=== PATIENT | female | born 1985 | race Caucasian/White ===

== ENCOUNTER → 2016-09-16 | Outpatient (CLI) | payer OTHER ==
[~2016-09-16] MED LIST: AGM875T; ALPR0.25 PO; CEFD300C3 PO; CLIN150V3 IJ; CLIN300C3 PO; CYCL10TA9 PO; DEPO PROVERA; DEPO SHOT IM; DOXY100T2 PO; FLUC200T; FLUT9.9S NS; HCTZ12.5T PO; HYDR-2997 PO; HYDR-3583 PO; HYDR1TAB PO; LEVO500T2 PO; METH4TAB PO; METO50TA7 PO; MPR22T TOP; MPR22T TP; MTP25TSR PO; MTR250T PO; MULT1CAP27 PO; NAPR-243 PO; NF-ESOM40C PO; NITR-65 PO; OMG1KC PO; PHEN37.582 PO; PNT40TEC PO; POTA99TA15 PO; PRD20T; PROP10TA8 PO; SCR1T1 PO; SULF1TAB35 PO; TRAM50TA2 PO
--- NOTE | 2016-09-18 10:36 | ECHOCARDIOGRAPHY REPORT ---
PROCEDURE PHYSICIAN: MESSI NIETO DATE OF PROCEDURE: 09/16/2016 TWO DIMENSIONAL ECHOCARDIOGRAM REPORT PRIMARY PHYSICIAN: OTHER PHYSICIAN: REFERRING PHYSICIAN: Dr. Martha Galicia ORDERING PHYSICIAN: INDICATION FOR THE PROCEDURE: Chest pain MEASUREMENTS DERIVED VALUES LV DIAMETER (LAX) NORMALS NORMALS Diastolic 4.6 (3.6-5.2) Eject. Fract. 60% (60%+/-6%) Systolic (2.3-3.9) Diastolic Vol. % Shortening (0.22-0.42) Systolic Vol. Aortic Root IVS THICKNESS Diastolic 0.9 (0.6-1.1) LVPW THICKNESS Diastolic 0.9 (0.6-1.1) LA DIAMETER Systolic 2.5 (2.1-3.7) FINDINGS: 1. Technical quality is good. 2. The left ventricle is normal in size with normal contractility. Systolic function appeared to be normal. Estimated ejection fraction is 60%. 3. The left atrium is normal in size. No clot or thrombus were seen within the left atrium. 4. The right atrium and right ventricle are normal in size. No clot or thrombus were seen within the right side. 5. Mitral valve is normal in morphology with mild mitral regurgitation noted by color Doppler flow. No mitral valve prolapse. No mitral valve stenosis. 6. Aortic valve is trileaflet with normal opening and closing pattern. No significant aortic stenosis or regurgitation was seen. 7. Tricuspid valve is normal in morphology with trace tricuspid regurgitation noted by color Doppler flow. Doppler across tricuspid valve estimated pulmonary artery pressure of 32+ right atrial pressure. 8. Pulmonic valve is functioning normally. 9. No pericardial effusion. CONCLUSION: 1. Normal left ventricular size and systolic function. Estimated ejection fraction 60%. 2. Mild mitral regurgitation and trace tricuspid regurgitation. 3. Estimated pulmonary artery pressure of 40 mmHg which is slight deterioration compared to the study of November 2015. It could be an over estimation of the pulmonary artery pressure. Job ID: [id number] Dictated Date: 09/17/2016 15:55:53 Ballet Master/Mistress Date: 09/18/2016 10:32:47 / kjreta
== END ==
LOC: CARD 14:42
PROVIDERS: ATTEND Physician Assistant
DX: I34.0 Nonrheumatic mitral (valve) insufficiency (principal); E78.2 Mixed hyperlipidemia; I27.0 Primary pulmonary hypertension; R07.89 Other chest pain
CPT/HCPCS: 93306

== ENCOUNTER → 2016-11-16 | Outpatient (CLI) | payer OTHER ==
--- NOTE | 2016-11-16 17:16 | Diagnostic Imaging Report ---
Transabdominal and transvaginal pelvic ultrasound. INDICATION: Ovarian cyst. FINDINGS: The uterus is 6 x 3.6 x 3.7 cm. There is slight heterogeneity in the myometrium with no discrete mass. The endometrial stripe is 0.3 cm in thickness. The right ovary is 2.3 x 1.9 x 1.8 cm. The left ovary is 3.0 x 2.9 x 1.8 cm. In the left ovary, there is a 2.4 cm cyst with minimal septation and adjacent free fluid which may relate to recent partial rupture. Arterial and venous waveforms are demonstrated in the right ovary. Arterial waveforms in the left ovary seen. IMPRESSION: 2.4 cm minimally complicated left ovarian cyst with an adjacent small amount of free fluid in the pelvis suggestive of partial rupture. No solid mass. Dictated by: Dictated on workstation # [id number]
== END ==
LOC: RAD 13:46
PROVIDERS: ATTEND Obstetrics & Gynecology
DX: N93.9 Abnormal uterine and vaginal bleeding, unspecified (principal); N83.202 Unspecified ovarian cyst, left side; N92.1 Excessive and frequent menstruation with irregular cycle
CPT/HCPCS: 76830; 76856

== ENCOUNTER → 2017-02-07 | Outpatient (CLI) | payer OTHER ==
[2017-02-07 18:24] LABS: BASOPHILS % (AUTO) 1 % (0-10); EOSINOPHILS # (AUTO) 0.1 10^3/uL (0.0-0.3); EOSINOPHILS % (AUTO) 1 % (0-10); LYMPHOCYTES # (AUTO) 3.2 X 10^3 (1.0-4.0); LYMPHOCYTES % (AUTO) 36 % (12-44); MEAN CORPUSCULAR HEMOGLOBIN 32 PG (25-34); MEAN CORPUSCULAR HGB CONC 33 G/DL (32-36); MEAN CORPUSCULAR VOLUME 97 FL (80-99); MEAN PLATELET VOLUME 9.5 FL (7.4-10.4); MONOCYTES # (AUTO) 0.8 X 10^3 (0.0-1.0); MONOCYTES % (AUTO) 9 % (0-12); NEUTROPHILS # (AUTO) 4.7 X 10^3 (1.8-7.8); NEUTROPHILS % (AUTO) 54 % (42-75); PLATELET COUNT 280 10^3/uL (130-400); RED BLOOD COUNT 4.34 10^6/uL (4.35-5.85); RED CELL DISTRIBUTION WIDTH 12.2 % (10.0-14.5); WHITE BLOOD COUNT 8.8 10^3/uL (4.3-11.0)
[2017-02-07 18:44] LABS: ALANINE AMINOTRANSFERASE 17 U/L (0-55); ALBUMIN 4.3 GM/DL (3.2-4.5); AMYLASE 48 U/L (25-125); ANION GAP 12 MMOL/L (5-14); ASPARTATE AMINO TRANSFERASE 20 U/L (5-34); BILIRUBIN,TOTAL 0.9 MG/DL (0.1-1.0); BLOOD UREA NITROGEN 9 MG/DL (7-18); BUN/CREATININE RATIO 11; CALCIUM 9.2 MG/DL (8.5-10.1); CARBON DIOXIDE 22 MMOL/L (21-32); CHLORIDE 108 MMOL/L (98-107); CREATININE SERUM 0.82 MG/DL (0.60-1.30); GFR ESTIMATED > 60; GLUCOSE 85 MG/DL (70-105); LIPASE 18 U/L (8-78); POTASSIUM 3.7 MMOL/L (3.6-5.0); SODIUM 142 MMOL/L (135-145); TOTAL PROTEIN 7.4 GM/DL (6.4-8.2); hs C REACTIVE PROTEIN 0.08 MG/DL (0.00-0.50)
== END ==
LOC: LAB 18:07
DX: R10.12 Left upper quadrant pain (principal); Z87.19 Personal history of other diseases of the digestive system
CPT/HCPCS: 36415; 80053; 82150; 83690; 85025; 86141

== ENCOUNTER → 2017-05-09 | Outpatient (CLI) | payer OTHER | LOC: LAB 17:24 | PROVIDERS: ATTEND Obstetrics & Gynecology | DX: N91.2 Amenorrhea, unspecified (principal) | CPT/HCPCS: 36415; 84703 ==

== ENCOUNTER → 2019-12-28 | Outpatient (CLI) | payer OTHER ==
--- NOTE | 2019-12-28 14:14 | Diagnostic Imaging Report ---
INDICATION: Acute bronchitis and decreased breathing sounds. TIME OF EXAM: 01:56 p.m. Correlation is made with prior chest from 06/10/2016. FINDINGS: The heart size is normal. The pulmonary vascularity is normal. No infiltrates are detected. There is no effusion or pneumothorax. IMPRESSION: No acute cardiopulmonary process is detected. Report given to Jami Rodriguez at 2:15 PM 12/28/2019/cb Dictated by: Dictated on workstation # [id number]
== END ==
LOC: RAD 13:08
PROVIDERS: ATTEND Nurse Practitioner
DX: J20.9 Acute bronchitis, unspecified (principal)
CPT/HCPCS: 71046

== ENCOUNTER → 2020-04-17 | Outpatient (CLI) | payer SELFPAY ==
--- NOTE | 2020-04-17 14:24 | Diagnostic Imaging Report ---
PROCEDURE: US Non-ob pelvis comp/trans. TECHNIQUE: Multiple realtime grayscale images were obtained of the pelvis in various projections endovaginally. Transabdominal imaging was also performed. INDICATION: Acute pelvic pain. Patient does have history of ovarian cyst. Correlation is made with prior pelvic ultrasound from 11/16/2016. The uterus is retroverted measuring 5.6 x 3.3 x 5.8 cm. Endometrium is approximately 3 mm in thickness. No myometrial mass is identified. Right ovary measures 2.7 x 1.9 x 2.0 cm and the left ovary measures 3.0 x 2.2 x 3.0 cm. Right ovary contains small follicles and shows normal blood flow. Left ovary does contain a cyst measuring 2.2 x 2.3 x 2.0 cm. Similar in size to measurements from 2017. There is blood flow to left ovary. No free fluid is identified. IMPRESSION: Stable left ovarian cyst when compared with prior study from 11/16/2016. No new abnormality is identified. Dictated by: Dictated on workstation # [id number]
== END ==
LOC: RAD 13:00
PROVIDERS: ATTEND Obstetrics & Gynecology
DX: N83.202 Unspecified ovarian cyst, left side (principal)
CPT/HCPCS: 76830; 76856

== ENCOUNTER → 2020-11-24 | Outpatient (CLI) | payer BC ==
[2020-11-24 11:25] LABS: ALANINE AMINOTRANSFERASE 20 U/L (0-55); ALKALINE PHOSPHATASE 53 U/L (40-136); BILIRUBIN,TOTAL 0.7 MG/DL (0.1-1.0); BUN/CREATININE RATIO 12; CALCIUM 9.1 MG/DL (8.5-10.1); CARBON DIOXIDE 19 MMOL/L (21-32); CHLORIDE 110 MMOL/L (98-107); CHOLESTEROL 190 MG/DL (< 200); CREATININE SERUM 0.82 MG/DL (0.60-1.30); GFR ESTIMATED > 60; GLUCOSE 103 MG/DL (70-105); HDL CHOLESTEROL 37 MG/DL (40-60); SODIUM 140 MMOL/L (135-145); TRIGLYCERIDES 172 MG/DL (<150); VLDL CHOLESTEROL 34 MG/DL (5-40)
== END ==
LOC: CARD 10:36
PROVIDERS: ATTEND Physician Assistant
DX: I10 Essential (primary) hypertension (principal); I25.10 Atherosclerotic heart disease of native coronary artery without angina pectoris; E78.2 Mixed hyperlipidemia
CPT/HCPCS: 36415; 80053; 80061; 93306

== ENCOUNTER → 2021-10-06 | Outpatient (CLI) | payer BC, OTHER ==
[2021-10-06 09:00] LABS: BASOPHILS # (AUTO) 0.1 10^3/uL (0.0-0.1); BASOPHILS % (AUTO) 1 % (0-10); EOSINOPHILS # (AUTO) 0.2 10^3/uL (0.0-0.3); EOSINOPHILS % (AUTO) 2 % (0-10); HEMATOCRIT 48 % (35-52); HEMOGLOBIN 16.1 g/dL (11.5-16.0); LYMPHOCYTES # (AUTO) 2.4 10^3/uL (1.0-4.0); LYMPHOCYTES % (AUTO) 22 % (12-44); MEAN CORPUSCULAR HEMOGLOBIN 33 pg (25-34); MEAN CORPUSCULAR HGB CONC 34 g/dL (32-36); MEAN CORPUSCULAR VOLUME 98 fL (80-99); MEAN PLATELET VOLUME 8.9 fL (9.0-12.2); MONOCYTES # (AUTO) 0.8 10^3/uL (0.0-1.0); MONOCYTES % (AUTO) 7 % (0-12); NEUTROPHILS # (AUTO) 7.4 10^3/uL (1.8-7.8); NEUTROPHILS % (AUTO) 68 % (42-75); PLATELET COUNT 338 10^3/uL (130-400); WHITE BLOOD COUNT 10.8 10^3/uL (4.3-11.0)
[2021-10-06 09:13] LABS: ALBUMIN 4.3 GM/DL (3.2-4.5); BILIRUBIN,TOTAL 0.5 MG/DL (0.1-1.0); CALCIUM 9.8 MG/DL (8.5-10.1); CREATININE SERUM 0.86 MG/DL (0.60-1.30); POTASSIUM 4.5 MMOL/L (3.6-5.0); TOTAL PROTEIN 7.6 GM/DL (6.4-8.2)
[2021-10-06 09:35] LABS: FREE T4 (FREE THYROXINE) 0.98 NG/DL (0.70-1.48)
== END ==
LOC: LAB 08:18
PROVIDERS: ATTEND Internal Medicine
DX: Z00.00 Encounter for general adult medical examination without abnormal findings (principal); E78.5 Hyperlipidemia, unspecified; D64.9 Anemia, unspecified
CPT/HCPCS: 36415; 80053; 80061; 82150; 82607; 82728; 82746; 83036; 83540; 83690; 84439; 84443; 85025

== ENCOUNTER 2021-12-04 02:44 | Emergency (ER) | payer OTHER ==
[~2021-12-04] VITALS: Ht 154.9 cm; Wt 67.8 kg
[2021-12-04 02:56] VITALS: BP 136/111
[2021-12-04] MEDS ORDERED: LIDOCAINE 1% INJ 20 ML VIAL IJ ONE (03:00)
[2021-12-04] MEDS ORDERED: TETANUS,DIPTH,PERTUSS P/F (BOOSTRIX) 0.5 ML VIAL IM ONE (03:00)
--- NOTE | 2021-12-04 03:02 | ED Upper Extremity ---
General Chief Complaint: Upper Extremity Stated Complaint: RT HAND & ARM LAC Source: patient History of Present Illness Date Seen by Provider: Dec 04, 2021 Time Seen by Provider: 02:51 Initial Comments PT ARRIVES VIA POV EMS AND POLICE WERE AT SCENE, THEN PT REFUSED TRANSPORT AND CAME BY POV PT STATES SHE WAS KNOCKING ON A WINDOW AND THE WINDOW BROKE, CUTTING HER RIGHT FOREARM AND HAND/WRIST AREA OCCURRED 20 MINUTES AGO, PER PT NO PARESTHESIAS OR MOTOR DEFICITS NO ACTIVE BLEEDING AT THIS TIME PT HAS NOT ATTEMPTED TO CLEAN IT OR PUT ANY KIND OF DRESSING ON IT, OR WRAP IT, ETC. NO OTHER INJURES FROM THE INCIDENT PT IS RIGHT HANDED NO PRIOR INJURIES TO THIS HAND / ARM LAST TETANUS IS UNKNOWN PCP: DR. POND Allergies and Home Medications Allergies Coded Allergies: Siri Known Allergies (Verified Allergy, Unknown, 12/16/06) Patient Home Medication List Home Medication List Reviewed: Yes Alprazolam (Xanax) 0.25 Mg Tablet, 0.25 MG PO for ANXIETY, (Reported) Entered as Reported by: BERTIN FISHER on 06/10/161837 Cephalexin (Cephalexin) 500 Mg Tablet, 500 MG PO QID Prescribed by: OLMAN MORAN on 12/04/21 0402 Doxycycline Hyclate (Doxycycline Hyclate) 100 Mg Tablet, 100 MG PO, (Reported) Entered as Reported by: BERTIN FISHER on 06/10/161837 Fluticasone Propionate (Flonase Allergy Relief) 9.9 Ml [place].susp, 9.9 ML NS BID Prescribed by: OLMAN MORAN on 06/10/162208 Levofloxacin (Levaquin) 500 Mg Tablet, 500 MG PO DAILY Prescribed by: OLMAN MORAN on 06/10/162208 Metoprolol Succinate (Toprol Xl 50 Mg) 50 Mg Tab.sr.24h, 1 EACH PO DAILY, (Reported) Entered as Reported by: WOLFGANG CLARKE on 04/29/12 1211 Multivitamins (Multivitamins) 1 Each Capsule, 1 EACH PO DAILY, (Reported) Entered as Reported by: BERTIN MARCIAL on 08/17/111751 [place] 3 Polyunsat Fatty Acids (Fish Oil) 1,000 Mg Cap, 1,000 MG PO DAILY, (Reported) Entered as Reported by: BERTIN MARCIAL on 08/17/111751 Prednisone (Prednisone) 20 Mg Tab, (Reported) Entered as Reported by: BERTIN FISHER on 06/10/161838 [Depo Shot] , Unknown Dose IM [id number], (Reported) Entered as Reported by: BERTIN FISHER on 06/10/161838 Review of Systems Constitutional: no symptoms reported : No (DOES NOT HAVE PERIODS ON DEPO-PROVERA) Control/STD Prophylaxis: Depo Provera Musculoskeletal: see HPI Skin: see HPI Psychiatric/Neurological: No Symptoms Reported Past Vgdzuin-Zivlam-Kmnlwb Hx Patient Social History Tobacco Use?: Yes Tobacco type used: Cigarettes Smoking Status: Current Everyday Smoker Substance use?: No Alcohol Use?: Yes Immunizations Up To Date Tetanus Booster (TDap): More than 5yrs Seasonal Allergies Seasonal Allergies: No Past Medical History Surgeries: Yes Section, Gallbladder Respiratory: No Cardiac: Yes (MITRAL VALVE PROLAPSE) Hypertension Neurological: No : No Reproductive Disorders: No Sexually Transmitted Disease: Yes (HPV) Genitourinary: No Gastrointestinal: No Musculoskeletal: No Endocrine: No HEENT: No Cancer: No Psychosocial: No Integumentary: No Blood Disorders: No Physical Exam Vital Signs Vital Signs - First Documented 12/04/21 02:56 Temp 36.8 Pulse 109 Resp 18 B/P (MAP) 136/111 (119) Pulse Ox 97 O2 Delivery Room Air Capillary Refill : Height, Weight, BMI Height: 5'1" Weight: 145lbs. oz. 65.222585ex; 25.50 BMI Method:Stated General Appearance: WD/WN, no apparent distress Elbow/Forearm: Right (MEDIAL ASPECT OF RIGHT MID FOREARM WITH IRREGULAR FLAP- TYPE LACERATTION. NO BLEEDING. ) Hand: Right (ANTERIOR ASPECT OF RIGHT HAND/WRIST AREA WITH LACERATION, NO ACTIVE BLEEDING. MOTOR/SENSORY/VASCULAR INTACT. ) Neurologic/Tendon: normal sensation, normal motor functions, normal tendon functions Neurologic/Psychiatric: no motor/sensory deficits, alert, normal mood/affect, oriented x 3 Skin: normal color, warm/dry, tattoos/piercings (MULTIPLE TATTOOS) Procedures/Interventions Other Wound Location LACERATION TO RIGHT MEDIAL FOREARM IS APPROXIMATELY 5 CM IN LENGTH, AND IS IN A VERY IRREGULAR C-SHAPED FLAP LACERATION. LACERATION TO RIGHT ANTERIOR WRIST IS APPROXIMATELY 3 CM IN LENGTH AND IS A ZIG-ZAG PATTERN AND A FLAP LACERATION. Wound's Depth, Shape: irregular, flap, sub Q Wound Explored: clean Irrigated w/ Saline (ccs): 100 Betadine Prep?: No (BETASEPT) Anesthesia: 1% Lidocaine Staple Repair: Stapler 35W Sterile Dressing Applied?: Yes Progress WRIST LACERATION REPAIRED WITH #4 SHAI FOREARM LACERATION REPAIRED WITH #7 SHAI Progress/Results/Core Measures Results/Orders My Orders Orders - OLMAN MORAN DO Forearm, Right, 2 Views (12/04/21 02:55) Hand, Right, 3 Views (12/04/21 02:55) Dipht,Pertuss(Acell),Tet Adult (Boostrix (12/04/21 03:00) Lidocaine 1% Inj 20 Ml (Xylocaine 1% Inj (12/04/21 03:00) Medications Given in ED Current Medications Medications Dose Ordered Sig/Kisha Route Start Time Stop Time Status Last Admin Dose Admin Diphtheria/ Tetanus/Acell Pertussis 0.5 ml ONCE ONCE IM 12/04/21 03:00 12/04/21 03:01 DC 12/04/21 03:18 0.5 ML Lidocaine HCl 20 ml ONCE ONCE IJ 12/04/21 03:00 12/04/21 03:01 DC 12/04/21 03:18 20 ML Vital Signs/I&O 12/04/21 02:56 Temp 36.8 Pulse 109 Resp 18 B/P (MAP) 136/111 (119) Pulse Ox 97 O2 Delivery Room Air Diagnostic Imaging Comments XRAYS RIGHT FOREARM AND WRIST--NO FOREIGN BODY NOTED. NO BONY INJURY. PENDING RADIOLOGIST REVIEW Reviewed: Reviewed by Me Departure Impression Primary Impression: lacerations to right wrist and forearm Additional Impression: Zqyipljyoe-ofaxntqim-adqqimu (DPT) vaccination administered at current visit Disposition: HOME, SELF-CARE Condition: Stable Departure-Patient Inst. Decision time for Depature: 04:00 Referrals: MIKE POND DO (PCP/Family) Primary Care Physician Patient Instructions: Diphtheria and Tetanus Toxoids, and Acellular Pertussis Vaccine, Laceration Repair With Shai (DC) Add. Discharge Instructions: LEAVE DRESSING IN PLACE FOR 24 HOURS, THEN YOU MAY CLEAN TWICE A DAY WITH ANTIBACTERIAL SOAP AND WATER KEEP WOUND COVERED AT WORK OR IF IN DIRTY ENVIRONMENT, OTHERWISE KEEP OPEN TO AIR TYLENOL AND MOTRIN NEEDED FOR PAIN SHAI OUT IN 10 DAYS--RETURN TO ER FOR REMOVAL. All discharge instructions reviewed with patient and/or family. Voiced understanding. Scripts Cephalexin (Cephalexin) 500 Mg Tablet 500 MG PO QID, #20 TAB 0 Refills Prov: OLMAN MORAN DO 12/04/21 OLMAN MORAN DO Dec 04, 2021 03:02
[2021-12-04] MEDS ORDERED: CEPH500T PO (04:02)
--- NOTE | 2021-12-04 04:44 | Diagnostic Imaging Report ---
Indication: Right forearm injury 2 views of the right forearm show no fracture or dislocation. IMPRESSION: Negative right forearm Dictated by: Dictated on workstation # [id number]
--- NOTE | 2021-12-04 04:47 | Diagnostic Imaging Report ---
Indication: Right hand laceration 3 views of the right hand show no fracture, dislocation or other acute abnormalities. IMPRESSION: Negative right hand Dictated by: Dictated on workstation # [id number]
== END 2021-12-04 04:22 | disposition home or self-care (01) ==
LOC: EDUNIT# 02:44 → ER 02:48
DX: S61.511A Laceration without foreign body of right wrist, initial encounter (principal); S51.811A Laceration without foreign body of right forearm, initial encounter; F17.210 Nicotine dependence, cigarettes, uncomplicated; Z23 Encounter for immunization; W25.XXXA Contact with sharp glass, initial encounter
CPT/HCPCS: 12034; 73090; 73130; 90715

== ENCOUNTER 2021-12-11 09:44 | Emergency (ER) | payer OTHER ==
[~2021-12-11] VITALS: Ht 154.9 cm; Wt 63.0 kg
[~2021-12-11 09:44] MED LIST changes: +CEPH500T PO
[2021-12-11 11:07] VITALS: BP 147/93
== END 2021-12-11 11:08 | disposition home or self-care (01) ==
LOC: EDUNIT# 09:44 → ER 09:45
DX: Z48.02 Encounter for removal of sutures (principal)

== ENCOUNTER → 2022-09-13 | Outpatient (CLI) | payer OTHER ==
[~2022-09-13] MED LIST changes: +LOSA25TA41 PO; +METO50TA15 PO; +PANT40TA2 PO
[2022-09-13 08:47] LABS: BASOPHILS # (AUTO) 0.1 10^3/uL (0.0-0.1); BASOPHILS % (AUTO) 1 % (0-10); EOSINOPHILS # (AUTO) 0.2 10^3/uL (0.0-0.3); EOSINOPHILS % (AUTO) 2 % (0-10); HEMATOCRIT 46 % (35-52); HEMOGLOBIN 15.5 g/dL (11.5-16.0); LYMPHOCYTES % (AUTO) 23 % (12-44); MEAN CORPUSCULAR HEMOGLOBIN 33 pg (25-34); MEAN CORPUSCULAR HGB CONC 34 g/dL (32-36); MEAN CORPUSCULAR VOLUME 98 fL (80-99); MEAN PLATELET VOLUME 8.7 fL (9.0-12.2); MONOCYTES # (AUTO) 0.7 10^3/uL (0.0-1.0); MONOCYTES % (AUTO) 8 % (0-12); NEUTROPHILS # (AUTO) 5.8 10^3/uL (1.8-7.8); NEUTROPHILS % (AUTO) 66 % (42-75); PLATELET COUNT 278 10^3/uL (130-400); WHITE BLOOD COUNT 8.8 10^3/uL (4.3-11.0)
[2022-09-13 09:00] LABS: CALCIUM 8.9 MG/DL (8.5-10.1)
[2022-09-13 09:02] LABS: TOTAL PROTEIN 6.6 GM/DL (6.4-8.2)
[2022-09-13 09:04] LABS: BILIRUBIN,TOTAL 0.6 MG/DL (0.1-1.0)
[2022-09-13 09:05] LABS: CREATININE SERUM 0.85 MG/DL (0.60-1.30)
[2022-09-13 09:29] LABS: FREE T4 (FREE THYROXINE) 0.88 NG/DL (0.70-1.48)
== END ==
LOC: LAB 08:28
PROVIDERS: ATTEND Internal Medicine
DX: Z00.00 Encounter for general adult medical examination without abnormal findings (principal); D64.9 Anemia, unspecified; E03.9 Hypothyroidism, unspecified; E78.1 Pure hyperglyceridemia; E78.00 Pure hypercholesterolemia, unspecified; E53.8 Deficiency of other specified B group vitamins
CPT/HCPCS: 36415; 80053; 80061; 82607; 82728; 82746; 83540; 83550; 84439; 84443; 85025

== ENCOUNTER → 2022-09-27 | Outpatient (CLI) | payer OTHER ==
--- NOTE | 2022-09-27 16:45 | Diagnostic Imaging Report ---
INDICATION: Fall, with pain in the right middle finger. TIME OF EXAM: 12:25 p.m. Three views of the right hand were obtained. FINDINGS: The metacarpals are intact. Phalanges are intact. Alignment is normal. No fractures are seen. Soft tissues are unremarkable. IMPRESSION: No acute bony abnormality is detected. Dictated by: Dictated on workstation # [id number]
== END ==
LOC: RAD 11:50
PROVIDERS: ATTEND Internal Medicine
DX: M79.644 Pain in right finger(s) (principal); W19.XXXA Unspecified fall, initial encounter
CPT/HCPCS: 36415; 73130; 85652; 86038; 86039; 86141; 86200; 86431

== ENCOUNTER → 2023-03-24 | Outpatient (CLI) | payer OTHER ==
[~2023-03-24] MED LIST changes: +HOLD METFORMIN - RECEIVED CONTRAST 20 ML VIAL IV SCH; +IOHEXOL 350 MG/ML 100 ML (OMNIPAQUE 350) VIAL IV ONE; +NS 100 ML (IVPB) BAG IV ONE
--- NOTE | 2023-03-24 09:36 | Diagnostic Imaging Report ---
EXAMINATION: CT angiography of the abdomen. TECHNIQUE: After intravenous administration of contrast, thin section axial CT angiography of the abdomen and were obtained. 3D MIP reformats were provided. All CT scans use one or more of the following dose optimizing techniques: automated exposure control, MA and/or KvP adjustment based on a patient size and exam type, or iterative reconstruction. HISTORY: Hypertension. COMPARISON: 06/10/2016 FINDINGS: Aorta is normal in caliber. Celiac and superior mesenteric arteries are normal. Both renal arteries are normal. There is an accessory left renal artery that is normal. There is mild stenosis of both common iliac arteries due to noncalcified plaque. Limited views of the lower thorax are unremarkable. The liver is normal without focal lesion. There is no biliary ductal dilation. Gallbladder is absent. Pancreas is normal. Spleen is normal. Adrenal glands are normal. The kidneys are normal. There is no hydronephrosis. Visualized bowel is normal in caliber without obstruction or inflammation. No free fluid or air. No abdominal lymphadenopathy. There are no suspicious osseous lesions. IMPRESSION: 1. No renal artery stenosis. Dictated by: Dictated on workstation # [id number]
== END ==
LOC: RAD 08:45
PROVIDERS: ATTEND Physician Assistant
DX: I10 Essential (primary) hypertension (principal)
CPT/HCPCS: 74175

== ENCOUNTER 2023-03-31 05:28 | Emergency (ER) | payer OTHER ==
[~2023-03-31] VITALS: Ht 154 cm; Wt 74.3 kg
[~2023-03-31 05:28] MED LIST changes: -HOLD METFORMIN - RECEIVED CONTRAST 20 ML VIAL IV SCH; -IOHEXOL 350 MG/ML 100 ML (OMNIPAQUE 350) VIAL IV ONE; -NS 100 ML (IVPB) BAG IV ONE
[2023-03-31 05:36] VITALS: BP 157/106
--- NOTE | 2023-03-31 06:06 | ED Upper Extremity ---
General Chief Complaint: Upper Extremity Stated Complaint: LEFT SHOULDER PAIN Nursing Triage Note: COMPLAINT OF SHOULDER LEFT PAIN FOR TWO MONTHS, STATES LAST TWO DAYS PAIN INCREASED, SEEN AT WALK IN TREATED FOR "FROZEN SHOULDER" NO XRAY, GIVEN TORADOL. STATES TYLENOL AT 2200. UNABLE TO DO ROM, STATES NECK PAIN, TINGLING IN HANDS, THUMB NUMB. STATES PAIN PATCH NOT HELPING. Source: patient Exam Limitations: no limitations History of Present Illness Date Seen by Provider: Mar 31, 2023 Time Seen by Provider: 05:37 Initial Comments 38yoF with no pertinent PMH coming in due to left shoulder pain. The pain has been going on for months, and it is worse for the past few days. Went to the urgent care yesterday, no imaging done, and was told she had a frozen shoulder. Was placed on a muscle relaxer and oral steroids. She did get a shot of toradol. She took tylenol earlier and it is not helping. Denies any recent trauma, fever, weakness, numbness, or any other concerns. She does feel like it radiates down from the left side of her neck down her arm. Allergies and Home Medications Allergies Coded Allergies: NKANo Known Allergies (Verified Allergy, Unknown, 12/16/06) Patient Home Medication List Home Medication List Reviewed: Yes Losartan Potassium (Losartan Potassium) 25 Mg Tablet, 25 MG PO DAILY, (Reported) Entered as Reported by: ABRAM CLEARY on 01/22/22 1238 Metoprolol Tartrate (Metoprolol Tartrate) 50 Mg Tablet, 50 MG PO BID, (Reported) Entered as Reported by: ABRAM CLEARY on 01/22/22 1238 Pantoprazole Sodium (Protonix) 40 Mg Tablet.dr, 40 MG PO DAILY, (Reported) Entered as Reported by: ABRAM CLEARY on 01/22/22 1238 [Depo Shot] , Unknown Dose IM [id number], (Reported) Entered as Reported by: BERTIN FISHER on 06/10/16 5339 Review of Systems Constitutional: No fever EENTM: no symptoms reported Respiratory: no symptoms reported Cardiovascular: no symptoms reported Gastrointestinal: no symptoms reported Genitourinary: no symptoms reported Musculoskeletal: see HPI Skin: no symptoms reported Psychiatric/Neurological: No Symptoms Reported Past Eqmrbqe-Vppmpq-Vvvfll Hx Immunizations Up To Date Tetanus Booster (TDap): More than 5yrs First/Initial COVID19 Vaccinat: 10/02 Second COVID19 Vaccination Klaus: 10/02 Third COVID19 Vaccination Date: 10/02 Seasonal Allergies Seasonal Allergies: No Past Medical History Surgeries: Yes Section, Gallbladder Respiratory: No Cardiac: Yes (MITRAL VALVE PROLAPSE) Hypertension, Valvular Heart Disease Neurological: No Reproductive Disorders: No Sexually Transmitted Disease: Yes (HPV) Genitourinary: No Gastrointestinal: No Musculoskeletal: No Endocrine: No HEENT: No Cancer: No Psychosocial: No Integumentary: No Blood Disorders: No Physical Exam Vital Signs Vital Signs - First Documented 03/31/23 05:36 Temp 36.2 Pulse 78 Resp 20 B/P (MAP) 157/106 (123) Pulse Ox 98 O2 Delivery Room Air Capillary Refill : Less Than 3 Seconds Height, Weight, BMI Height: 5'1" Weight: 145lbs. oz. 65.579177uw; 31.00 BMI Method:Stated General Appearance: WD/WN, no apparent distress HEENT: PERRL/EOMI, normal ENT inspection, pharynx normal Neck: non-tender, full range of motion, supple, normal inspection Cardiovascular: regular rate, rhythm, no edema Respiratory: chest non-tender, lungs clear, normal breath sounds, no respiratory distress, no accessory muscle use Gastrointestinal: normal bowel sounds, non tender, soft; No distended, No guarding, No rebound Shoulder: normal inspection, no evidence of injury, normal ROM, soft tissue tenderness (globally around shoulder, positive Spurling) Elbow/Forearm: normal inspection, non-tender, no evidence of injury, normal ROM Wrist: Yes normal inspection, Yes non-tender, Yes no evidence of injury, Yes normal ROM Neurologic/Tendon: normal sensation, normal motor functions, normal tendon functions Neurologic/Psychiatric: no motor/sensory deficits, alert, normal mood/affect Skin: normal color, warm/dry Progress/Results/Core Measures Results/Orders My Orders Orders - TANMAY GAYTAN MD Shoulder, Left, 3 Views (03/31/23 05:55) Tramadol Tablet (Ultram Tablet) (03/31/23 06:15) Ibuprofen Tablet (Ibuprofen Tablet) (03/31/23 06:15) Medications Given in ED Current Medications Medications Dose Ordered Sig/Kisha Route Start Time Stop Time Status Last Admin Dose Admin Ibuprofen 600 mg ONCE ONCE PO 03/31/23 06:15 03/31/23 06:16 DC 03/31/23 06:17 600 MG Tramadol HCl 50 mg ONCE ONCE PO 03/31/23 06:15 03/31/23 06:16 DC 03/31/23 06:17 50 MG Vital Signs/I&O 03/31/23 05:36 Temp 36.2 Pulse 78 Resp 20 B/P (MAP) 157/106 (123) Pulse Ox 98 O2 Delivery Room Air Blood Pressure Mean: 123 Progress Progress Note : Progress Note 38-year-old female with above history coming in due to left shoulder pain. ABCs were intact and vitals were stable on presentation. Physical exam with global soft tissue tenderness around her shoulder, and she is currently positive. I suspect this is actually coming from her cervical spine. She has normal range of motion of her shoulder, frozen shoulder has been ruled out. X-ray of the left shoulder ordered and interpreted by me showing no fracture or dislocation. She was given tramadol and ibuprofen here for pain. She is neurovascularly intact otherwise and has no red flags. I believe she is stable for discharge with outpatient follow-up. She was sent home with strict return precautions Diagnostic Imaging Diagonstic Imaging: Xray (left shoulder) Comments [facility], [facility]. [place], [place] NAME: [facility] REC#: [id number] PT STATUS: REG ER : 1985 PHYSICIAN: TANMAY GAYTAN MD ADMIT DATE: 03/31/23/ER Signed Date of Exam:03/31/23 SHOULDER, LEFT, 3 VIEWS Indication: Left shoulder pain 3 views of the left shoulder show no fracture, dislocation or other acute abnormalities. IMPRESSION: Negative left shoulder Dictated by: Dictated on workstation # [email or web address] Dict: 03/31/23617 Trans: 03/31/23618 TCB [id number] Interpreted by: TI HANNAH MD Electronically signed by: TI HANNAH MD 03/31/23618 Departure Impression Primary Impression: Cervical radiculopathy Additional Impression: Shoulder pain, left Qualified Codes: M25.512 - Pain in left shoulder; G89.29 - Other chronic pain Disposition: 01 HOME, SELF-CARE Condition: Stable Departure-Patient Inst. Decision time for Depature: 06:30 Referrals: MIKE POND DO (PCP/Family) Primary Care Physician KRISTEN GRAVES MD Patient Instructions: Radiculopathy Add. Discharge Instructions: We believe the majority of her pain is actually coming from your nerves in your cervical spine of your neck. This causes pain in the shoulder that goes down the arm. The x-ray of your shoulder is normal-appearing. We recommend anti- inflammatories, prescription strength ibuprofen was sent to your pharmacy. You can take Tylenol and the muscle relaxer you are taking with this. We recommend following up with an orthopedist. Dr. Graves is the orthopedist here in [facility] that you can follow up with if you would like. His number is in this paperwork. He may be able to set you up for steroid injections. We would also recommend physical therapy to help with this pain. You do not have a frozen shoulder. Scripts Lidocaine (Lidocaine 5% Patch) 5 % Adh..patch 1 EACH TP Q12H PRN for Neuropathic pain MDD 2 for 14 Days, #28 PATCH 2 patches max for 12 hours, then 12 hours patch-free period. Prov: TANMAY GAYTAN MD 03/31/23 Ibuprofen (Ibuprofen) 600 Mg Tablet 600 MG PO Q6H PRN for PAIN-MILD for 7 Days, #28 TAB Prov: TANMAY GAYTAN MD 03/31/23 Work/School Note: Work Release Form Date Seen in the Emergency Department: Mar 31, 2023 Return to Work: Apr 01, 2023 Restrictions: No Restrictions TANMAY GAYTAN MD Mar 31, 2023 06:06
[2023-03-31] MEDS ORDERED: IBUPROFEN 600 MG TABLET PO ONE (06:15)
--- NOTE | 2023-03-31 06:21 | Diagnostic Imaging Report ---
Indication: Left shoulder pain 3 views of the left shoulder show no fracture, dislocation or other acute abnormalities. IMPRESSION: Negative left shoulder Dictated by: Dictated on workstation # [email or web address]
[2023-03-31] MEDS ORDERED: IBUP-1773 PO (06:27)
[2023-03-31] MEDS ORDERED: LIDO700A45 TP (06:27)
== END 2023-03-31 06:51 | disposition home or self-care (01) ==
LOC: EDUNIT# 05:28 → ER 05:30
DX: M54.12 Radiculopathy, cervical region (principal); M25.512 Pain in left shoulder
CPT/HCPCS: 73030

== ENCOUNTER → 2023-04-26 | Outpatient (CLI) | payer OTHER ==
[~2023-04-26] MED LIST changes: +IBUP-1773 PO; +LIDO700A45 TP
--- NOTE | 2023-04-26 09:02 | Diagnostic Imaging Report ---
PROCEDURE: MR imaging cervical spine without contrast. TECHNIQUE: Multiplanar, multisequence MR imaging of the cervical spine was performed without contrast. INDICATION: Cervical disc disorder. COMPARISON: None. FINDINGS: Reversal of the normal cervical lordosis centered at C5. Vertebral body heights preserved. Normal bone marrow signal. No convincing abnormal signal in the cervical spinal cord. The visualized paravertebral soft tissues are unremarkable. C2-C3: Normal. C3-C4: Normal. C4-C5: Normal. C5-C6: Large left paracentral disc extrusion results in muxajjer-bn-pduhaf spinal canal stenosis. Severe left and moderate right neural foraminal narrowing. C6-C7: Normal. C7-T1: Normal. IMPRESSION: Large left paracentral disc extrusion at C5-C6 results in vddgqpjq-my-rdpcmk spinal canal stenosis. There is also severe left and moderate right neural foraminal narrowing at this level. No convincing abnormal signal in the cervical spinal cord. Dictated by: Dictated on workstation # [id number]
== END ==
LOC: RAD 07:42
PROVIDERS: ATTEND Internal Medicine
DX: M50.222 Other cervical disc displacement at C5-C6 level (principal); M48.02 Spinal stenosis, cervical region
CPT/HCPCS: 72141